=== PATIENT | male | born 1960 | race Caucasian/White ===

== ENCOUNTER 2017-01-06 19:59 | Emergency (ER) | payer MEDICAID ==
[2017-01-06 20:08] VITALS: TEMP 97.9; O2SAT 96
--- NOTE | 2017-01-06 20:17 | CPEKG ---
Heart Rate: 66 RR Interval: 909 P-R Interval: 196 QRSD Interval: 98 QT Interval: 388 QTC Interval: 407 P Whiting: 13 QRS Whiting: 51 T Wave Whiting: 8 EKG Severity - NORMAL ECG - EKG Impression: SINUS RHYTHM Electronically Signed By: Miguelito Todd 06-Jan-2017 23:04:11
--- NOTE | 2017-01-06 20:20 | EDPHY ---
H & P Stated Complaint: CP extensive workup at [facility] last week. Time Seen by Provider: 01/06/17 20:18 - Personal History Current Tetanus/Diphtheria Vaccine: Unsure - Medical/Surgical History Hx Asthma: No Hx Chronic Respiratory Disease: No Hx Diabetes: No Hx Cardiac Disease: No Hx Renal Disease: No Hx Cirrhosis: No Hx Alcoholism: No Hx HIV/AIDS: No Hx Splenectomy or Spleen Trauma: No Other PMH: PMH- ANXIETY, OPIATE ADDICTION, CHRONIC PAIN, TORN R ACL, TORN L ROTATOR CUFF, BULGING DISC, DEPRESSION, ?BIPOLAR, HTN. PSH- BACK SURGERY - Social History Smoking Status: Heavy smoker Constitutional: Initial Vital Signs Temperature (C) 36.6 C 01/06/17 20:05 Heart Rate 71 01/06/17 20:05 Respiratory Rate 18 01/06/17 20:05 Blood Pressure 120/76 01/06/17 20:05 O2 Sat (%) 96 01/06/17 20:05 O2 Delivery Mode Room Air Allergies/Adverse Reactions: No Known Allergies Allergy (Verified 01/06/17 20:02) Home Medications: Medication Instructions Recorded Diazepam 10 mg PO BID #60 tablet 10/19/15 Gabapentin [Neurontin 300 MG (*)] 600 mg PO QID #0 cap 10/19/15 Lisinopril [Zestril 40 mg (*)] 40 mg PO DAILY 10/19/15 Nicotine Polacrilex [Nicorette gum 2 mg B Q1 PRN #0 gum 10/19/15 (*)] Tamsulosin HCl [Flomax 0.4 MG (*)] 0.4 mg PO DAILY #0 cap 10/19/15 lamoTRIgine [LamICTAL 100 MG (*)] 100 mg PO BID@08,16 10/19/15 Suboxone 8 mg-2 mg SL Film 01/06/17 Medical Decision Making ED Course/Re-evaluation: CHIEF COMPLAINT: Chest and back pain HISTORY OF PRESENT ILLNESS: This patient is a 56 year old male who presents to the Emergency Department complaining of chronic and progressive centralized chest pain over the past few weeks. He describes his pain as severity 9/10 and radiating through to his back. He denies any additional symptoms; no diaphoresis , nausea, dyspnea or additional complaints. He was worked up extensively for chest pain at the [facility] ED last week. He has a history of opioid addiction; he has been sober for four months and now takes Suboxone and Valium for chronic back pain. REVIEW OF SYSTEMS: A 10 point review of systems was performed and is negative with the exception of the elements mentioned in the history of present illness. PHYSICAL EXAM: HR, BP 120/76, O2 Sat 96%, RR 18. Temp noted General Appearance: Alert, well hydrated, appropriate, and non-toxic appearing. Head: Atraumatic without scalp tenderness or obvious injury Eyes: Pupils equal, round, reactive to light and accommodation, EOMI, no trauma , no injection. Ears: Clear bilaterally, no perforation, normal landmarks Nose: Atraumatic, no rhinorrhea, clear. Throat: There is no erythema or exudates, no lesions, normal tonsils, mucus membranes moist. Neck: Supple, 2+ carotid upstroke, nontender, no lymphadenopathy. Respiratory: No retractions, no distress, no wheezes, and no accessory muscle use. Lungs are clear to auscultation bilaterally. Cardiovascular: Regular rate and rhythm, no murmurs, rubs, or gallops. Bilateral carotid, radial, dorsalis pedis, and posterior tibial pulses intact. Good capillary refill all extremities. Gastrointestinal: Abdomen is soft, nontender, non-distended, no masses, no rebound, no guarding, no peritoneal signs. Musculoskeletal: Normal active ROM of all extremities, atraumatic. Neurological: Alert, appropriate, and interactive. The patient has normal DTRs and non-focal cranial nerves, motor, sensory, and cerebellar exam. Skin: No rashes, good turgor, no nodules on palpation. Past medical history: Opiate addiction. Past surgical history: Back surgery performed by Dr. Rivas on 11/26 for spinal stenosis. Family history: Non-contributory. Social history: and daughter at bedside. DIAGNOSTICS/PROCEDURES/CRITICAL CARE TIME: EKG INTERPRETATION: The 12 lead EKG was interpreted by myself: Sinus rhythm, rate 66. Non-ischemic. See hard copy and/or "tracemaster" electronic copy for interpretation. DIFFERENTIAL DIAGNOSIS: MEDICAL DECISION MAKING: This patient is a 56 year old male who takes Suboxone for chronic back pain who presents complaining of centralized chest pain radiating directly through to his back. I obtained records from [facility] where he received an extensive workup for this last week. I explained to the patient that I am unable to provide him with pain medications at this time given that he is currently taking Suboxone. I recommended to him that he discuss changes to this medication with his prescribing physician. Will proceed with IM Toradol to help alleviate some of the pain he is experiencing. Departure - Departure Disposition: Home, Routine, Self-Care Clinical Impression: Atypical chest pain, Mid back pain Condition: Good Instructions: Chronic Back Pain (ED), Chest Pain (ED) Additional Instructions: 1. Return to your pain doctor to discuss additional treatment plans for your pain. 2. Return to the Emergency Department if you experience severe pain, difficulty breathing, nausea or vomiting, or other serious concerns. Referrals: VIRGIL DE LA CRUZ [Primary Care Provider] - As per Instructions Report Scribed for: Miguelito Todd Report Scribed by: Margaret Coughlin Date of Report: 01/06/17 Time of Report: 20:30
[2017-01-06] MEDS ORDERED: KETOROLAC 30 MG/1 ML SDV IM ONE (20:43)
[2017-01-06 20:58] VITALS: BP 125/89; PULSE 70; RESP 14
== END 2017-01-06 20:57 | disposition home or self-care (01) ==
DX: M54.9 Dorsalgia, unspecified (principal); R07.89 Other chest pain; I10 Essential (primary) hypertension; F17.200 Nicotine dependence, unspecified, uncomplicated
CPT/HCPCS: J1885